=== PATIENT | female | born 1995 | race African-American/Black ===

== ENCOUNTER 2024-06-03 18:15 | Emergency (ER) | payer OTHER ==
[~2024-06-03] VITALS: Ht 154.9 cm; Wt 48.0 kg
[2024-06-03 18:45] VITALS: O2SAT 100
[2024-06-03] MEDS: HYDROCODONE/ACETAMINOPHEN 5/325MG TABLET PO ONE (20:30)
[2024-06-03 20:44] LABS: CLARITY URINE CLEAR (CLEAR); COLOR URINE YELLOW (YELLOW); GLUCOSE URINE NEGATIVE (NEGATIVE); KETONES URINE NEGATIVE (NEGATIVE); LEUKOCYTE ESTERASE URINE 1+ (NEGATIVE); NITRITE URINE NEGATIVE (NEGATIVE); OCCULT BLOOD URINE NEGATIVE (NEGATIVE); PROTEIN URINE NEGATIVE (NEGATIVE); SPECIFIC GRAVITY URINE 1.017 (1.005-1.030); UROBILINOGEN URINE 0.2 E.U./dL (0.2-1.0)
[2024-06-03 21:15] LABS: RBC URINE 0-2 /hpf (0-2); SQUAMOUS EPITHELIAL CELL URINE FEW /lpf (RARE/1+)
[2024-06-03 21:17] LABS: BACTERIA URINE 1+
[2024-06-03] MEDS ORDERED: NITR-87 MT (23:20)
[2024-06-03] MEDS ORDERED: METR-167 MT (23:20)
[2024-06-03 23:25] VITALS: BP 117/75; PULSE 78; RESP 16; TEMP 36.72516; O2SAT 99
[2024-06-03] MEDS ORDERED: ACET-2708 MT (23:27)
[2024-06-06 04:08] LABS: CHLAMYDIA TRACHOMATIS NAA Negative (Negative); NEISSERIA GONORRHOEAE NAA Negative (Negative)
== END 2024-06-03 23:25 | disposition home or self-care (01) ==
LOC: ER 18:15
DX: N89.8 Other specified noninflammatory disorders of vagina (principal)
CPT/HCPCS: 76830; 76856; 81003; 81025; 87210; 87491; 87591; 93976; 99284